=== PATIENT | female | born 1950 | race Caucasian/White ===

== ENCOUNTER 2016-11-18 18:52 | Emergency (ER) | payer OTHER ==
[~2016-11-18] VITALS: Ht 160 cm; Wt 108.2 kg
[~2016-11-18 18:52] MED LIST: ALBU8I INH; GLYB5TAB3 PO; LEVO50TA4 PO; LORA1TAB12 PO; SIMV20TA PO; SOMA350T PO
[2016-11-18 18:57] VITALS: BP 157/76; PULSE 97; RESP 19; TEMP 98; O2SAT 98
[2016-11-18] MEDS ORDERED: VENTAER INH (19:19)
[2016-11-18] MEDS ORDERED: SIMV20TA PO (19:19)
[2016-11-18] MEDS ORDERED: ZYRT10CA PO (19:19)
[2016-11-18] MEDS ORDERED: GLYB2.5T3 PO (19:19)
[2016-11-18] MEDS ORDERED: LEVO50TA4 PO (19:19)
[2016-11-18 19:20] LABS: BLOOD, URINE TRACE (NEG); GLUCOSE,URINE 100 mg/dL (NEG); KETONE, URINE TRACE mg/dL (NEG); PH, URINE 5.5 (5.0-8.5)
[2016-11-18 19:27] LABS: NITRITE,URINE POS (NEG)
[2016-11-18 19:30] LABS: URINE COLOR ORANGE (YELLW/STRAW)
[2016-11-18 19:31] LABS: BACTERIA, URINE FEW /hpf; COMMENT (UR) CULTURE INDICATED; CULTURE IF INDICATED CULTURE INDICATED
[2016-11-18] MEDS ORDERED: CEPH-460 PO ×2 (19:41→19:44)
--- NOTE | 2016-11-18 19:43 | PD ---
HPI Chief Complaint: Complaint Time Seen by Provider: 19:41 Travel History International Travel<30 days: No Contact w/Intl Traveler<30days: No Traveled to known affect area: No History of Present Illness HPI 66-year-old female with a history of hyperlipidemia and diabetes presents to the emergency department for evaluation of burning with urination and urinary frequency for 2 days. Patient states today she has also developed some suprapubic discomfort. Denies any fever, chills, nausea, vomiting, hematuria, back pain. States that she think she has urinary tract infection. Denies any other complaints. PFSH Past Medical History Arthritis: Yes Cancer: Yes (Endometrial) Cardiovascular Problems: No High Cholesterol: Yes Diabetes: Yes Patient Takes Glucophage: No Endocrine: Yes Gastrointestinal Disorders: Yes (HX GERD) GERD: Yes Genitourinary: No Hepatitis: No Hiatal Hernia: No Hypertension: Yes Immune Disorder: No Musculoskeletal: Yes (ARTHRITIS, LEFT ARM PAIN WITH BP'S TAKEN THERE) Neurologic: Yes (Cervical & lumbar DDD) Psychiatric: Yes (Anxiety, claustrophobia, social anxiety) Reproductive: Yes (Uterine CA) Respiratory: Yes (Asthma ) Thyroid Disease: Yes (Hypo-) Tetanus Vaccination: > 5 Years Influenza Vaccination: No ?: Not Menopausal: Yes : 4 Para: 4 Past Surgical History AICD: No Genitourinary Surgery: Yes (RECTAL FISTULA REPAIR 2004) Hysterectomy: Yes Joint Replacement: No Oral Surgery: Yes (TONSILLECTOMY) Pacemaker: No Tonsillectomy: Yes Other Surgery: Yes (Rectal fistula repair) Social History Alcohol Use: Yes (Rarely) Tobacco Use: No Substance Use: No Allergies-Medications (Allergen,Severity, Reaction): Coded Allergies: Lisinopril (Unverified Adverse Reaction, Severe, COUGH, 11/18/16) Codeine (Verified Adverse Reaction, Mild, NAUSEA, 11/18/16) Reported Meds & Prescriptions Reported Meds & Active Scripts Active Keflex (Cephalexin) 500 Mg Cap 500 Mg PO Q12H 7 Days Reported Ventolin Hfa 18 GM Inh (Albuterol Sulfate) 90 Mcg/Act Aer 2 Puff INH Q4-6H PRN Zyrtec Allergy (Cetirizine HCl) 10 Mg Cap 10 Mg PO DAILY Simvastatin 20 Mg Tab 20 Mg PO DAILY Glyburide 2.5 Mg Tab 2.5 Mg PO DAILY Take with meals at the same time each day Levothyroxine (Levothyroxine Sodium) 50 Mcg Tab 50 Mcg PO DAILY Review of Systems Except as stated in HPI: all other systems reviewed are Neg Physical Exam Narrative GENERAL: Well-nourished and well-developed pleasant female patient in no acute distress who is nontoxic appearing. SKIN: Warm and dry. HEAD: Normocephalic and atraumatic. EYES: No injection, drainage, or hyphema noted. PERRLA. EOMI. ENT: No nasal drainage noted. Oropharynx is clear. NECK: Supple and the trachea is midline. CARDIOVASCULAR: Regular rate and rhythm. RESPIRATORY: Breath sounds are equal bilaterally with no accessory muscle use, wheezing, rhonchi, or crackles. GASTROINTESTINAL: Abdomen is soft, non-tender, and nondistended. MUSCULOSKELETAL: No obvious deformities, swelling, cyanosis, or ecchymosis is present throughout the upper and lower extremities. BACK: Negative CVA tenderness. NEUROLOGICAL: Awake, alert, and oriented. Normal speech and gait. Cranial nerves are grossly intact. Data Data Last Documented VS Vital Signs Date Time Temp Pulse Resp B/P Pulse Ox O2 Delivery O2 Flow Rate FiO2 11/18/16 18:57 98.0 97 19 157/76 98 Orders Urinalysis - C+S If Indicated (11/18/16 19:11) Urine Culture (11/18/16 19:00) Labs Laboratory Tests Test 11/18/16 19:00 Urine Color ORANGE Urine Turbidity CLEAR Urine pH 5.5 Urine Specific [place] 1.019 Urine Protein 100 mg/dL Urine Glucose (UA) 100 mg/dL Urine Ketones TRACE mg/dL Urine Occult Blood TRACE Urine Nitrite POS Urine Bilirubin NEG Urine Leukocyte Esterase SMALL Urine RBC 10-14 /hpf Urine WBC 25-49 /hpf Urine Squamous Epithelial 6-8 /hpf Cells Urine Bacteria FEW /hpf Microscopic Urinalysis Comment CULTURE INDICATED MDM Medical Decision Making Medical Screen Exam Complete: Yes Emergency Medical Condition: Yes Differential Diagnosis Urethritis versus cystitis versus dysuria Narrative Course 66-year-old female presents to the emergency department for evaluation of burning with urination and urinary frequency. Patient is afebrile, vital signs are stable. Abdominal examination is benign. Urinalysis shows a urinary tract infection. Patient will be treated with Keflex. Instructed to follow-up with her PCP. Patient verbalizes understanding and agreement with treatment plan. Diagnosis Primary Impression: Urinary tract infection Qualified Code: N39.0 - Urinary tract infection with hematuria, site unspecified Referrals: Primary Care Physician Patient Instructions: General Instructions, Urinary Tract Infection in Women ( ED) Additional Instructions: Take medications as prescribed with food and a full glass of water. Follow-up with your Primary Care Physician. Return to the ED for any acute worsening of symptoms. Med/Other Pt SpecificInfo: Prescription(s) given Scripts Cephalexin (Keflex)500 Mg [id number] Mg PO Q12H 7 Days Ref 0 Prov:Semaj Torres MD 11/18/16 Disposition: 01 DISCHARGE HOME Condition: Stable Jovita Tran Nov 18, 2016 19:43
[2016-11-25] MEDS ORDERED: LORA1TAB12 PO (16:30)
[2016-11-25] MEDS ORDERED: SOMA350T PO (16:30)
== END 2016-11-18 19:50 | disposition home or self-care (01) ==
LOC: PHEFT 18:52
DX: N39.0 Urinary tract infection, site not specified (principal); E11.9 Type 2 diabetes mellitus without complications; E78.5 Hyperlipidemia, unspecified; E78.00 Pure hypercholesterolemia, unspecified; J45.909 Unspecified asthma, uncomplicated; I10 Essential (primary) hypertension; K21.9 Gastro-esophageal reflux disease without esophagitis; B96.20 Unspecified Escherichia coli [E. coli] as the cause of diseases classified elsewhere
CPT/HCPCS: 81001; 87077; 87086; 87186; 99283